=== PATIENT | male | born 1985 | race Two or more races ===

== ENCOUNTER 2025-01-09 00:39 | Emergency (ER) | payer SELFPAY ==
[~2025-01-09] VITALS: Ht 185.4 cm; Wt 80.0 kg
[2025-01-09 01:13] VITALS: TEMP 36.8
[2025-01-09] MEDS: ONDANSETRON HCL 4MG/2ML INJ IM ONE (01:35)
[2025-01-09] MEDS: HALOPERIDOL LACTATE 5MG/ML VIAL IM ONE (01:36)
[2025-01-09] MEDS: LORAZEPAM 2MG/ML INJ IM ONE (01:36)
[2025-01-09] MEDS: SODIUM CHLORIDE 0.9% 1,000 ML IV ONE ×2 (01:37→04:30)
[2025-01-09 01:53] LABS: BASOPHILS % 1.5 % (0.0-2.0); EOSINOPHILS % 1.6 % (0.0-5.0); HEMATOCRIT. 43.3 % (42.0-52.0); HEMOGLOBIN. 15.3 g/dL (14.0-18.0); MEAN CORPUSCULAR HEMOGLOBIN 31.5 pg (28.0-32.0); MEAN CORPUSCULAR HGB CONC 35.2 g/dL (31.0-37.0); MEAN CORPUSCULAR VOLUME 89.4 fL (80.0-94.0); MEAN PLATELET VOLUME 8.5 fl (7.4-10.4); MONOCYTES % 6.7 % (2.0-8.0); NEUTROPHILS % 61.2 % (40.0-76.0); PLATELET 196 x1000/uL (130-400); RED BLOOD CELL COUNT 4.85 mill/uL (4.7-6.1); RED CELL DISTRIBUTION WIDTH 12.8 % (11.6-14.6); WHITE BLOOD COUNT 6.8 x1000/uL (4.5-11.0)
[2025-01-09 02:01] VITALS: TEMP 98.7; O2SAT 100
[2025-01-09 02:03] LABS: CHLORIDE 108 mEq/L (98-107); POTASSIUM 3.6 mEq/L (3.5-5.1); SODIUM 143 mEq/L (136-145)
[2025-01-09 02:04] LABS: CALCIUM 9.5 mg/dL (8.7-10.4); CARBON DIOXIDE 24 mEq/L (21-32)
[2025-01-09 02:09] LABS: CREATININE 1.1 mg/dL (0.6-1.3); GLUCOSE 92 mg/dL (70-105); UREA NITROGEN BLOOD 13 mg/dL (9-23)
[2025-01-09 02:10] LABS: ETHANOL BLOOD 290 mg/dL (<10)
[2025-01-09 02:11] LABS: ACETAMINOPHEN < 2 ug/mL (10-30)
[2025-01-09 05:00] VITALS: BP 104/74; PULSE 71; RESP 16; O2SAT 99
== END 2025-01-09 06:42 | disposition home or self-care (01) ==
LOC: ER 00:39
DX: T51.0X1A Toxic effect of ethanol, accidental (unintentional), initial encounter (principal); R45.6 Violent behavior; Z98.890 Other specified postprocedural states; Z79.899 Other long term (current) drug therapy; Y92.89 Other specified places as the place of occurrence of the external cause
CPT/HCPCS: 80048; 80307; 80329; 80320; 85025; 36415; 71045; 70450; 93005; 96360; 96372; 99291; J1630; J2060; J2405; J7030; Z7610; G0480